=== PATIENT | female | born 1955 | race Caucasian/White ===

== ENCOUNTER 2025-07-01 08:44 | Outpatient (AMB) | payer MEDICARE, MEDICAID, SELFPAY ==
--- NOTE | 2025-07-01 09:20 | MHC.OFFVIS ---
Intake Visit Reasons: 6 month f/u Accompanied by: staff member Allergies No Known Allergies Allergy (Verified 07/01/25 09:23) Medication List - Last Reconciled 07/01/25 by Celia Mcclendon CNP amlodipine 5 mg PO DAILY atorvastatin 40 mg PO QPM ferrous sulfate (FeroSul) 325 mg PO QAM fluticasone propion-salmeterol 115-21 mcg/actuation (Advair HFA) 2 puffs inhalation BID furosemide 20 mg PO QAM ibuprofen 600 mg PO Q8H PRN metformin ER 500 mg PO QAM montelukast 10 mg PO BEDTIME omeprazole 40 mg PO QAM phenobarbital 64.8 mg PO BEDTIME triamcinolone acetonide 1 spray intranasal DAILY HPI Comments Details: 70-year-old woman with cerebral palsy and associated physical disability and aphasia requiring 24/7 care, and seizure disorder. [facility] a detention. She was doing very good. No seizures. Sleep was okay. Mood was okay. [facility] Medical History (Updated 07/01/25 @ 09:24 by Celia Mcclendon CNP) Asthma GERD (gastroesophageal reflux disease) Hyperlipidemia Cerebellar atrophy Gait disorder Seizure disorder Review of Systems Const Denies chills, Denies daytime sleepiness, Denies difficulty sleeping, Denies fatigue, Denies fever(s), Denies frequent falls, Denies headache(s), Denies increased appetite, Denies poor appetite, Denies snoring, Denies weakness, Denies weight gain and Denies weight loss Eyes Denies loss of vision ENT Denies vertigo, Denies dizziness and Denies headache(s) Card Denies chest pain at rest, Denies chest pain with activity, Denies syncope, Denies leg edema and Denies palpitations Resp Denies snoring GI Denies constipation, Denies heartburn, Denies diarrhea and Denies nausea Denies urinary frequency, Denies urinary incontinence and Denies urinary urgency Musc Reports abnormal gait (balance difficulty), Denies numbness and Denies tingling Skin/Breast Denies dry skin and Denies rash Neuro Reports abnormal gait (balance difficulty), Denies vertigo, Denies dizziness, Denies syncope, Denies frequent falls, Denies headache(s), Reports lack of coordination, Denies loss of vision, Reports memory loss, Denies numbness, Denies restless legs, Denies seizure-like activity, Denies tingling, Denies paresthesias, Denies tremor(s) and Denies weakness Psych Denies anxiety, Denies depression, Denies auditory hallucinations, Reports memory loss, Denies visual hallucinations and Denies suicidal ideation Endo Denies fatigue and Denies palpitations Physical Exam Const Other: General Appearance:? normal, in no acute distress. Skin:? no rashes, no significant birthmarks. Heart:? S1, S2 normal, no murmurs. Lungs:? clear anteriorly and posteriorly. Extremities:? no edema. Psych:? alert. Neuro Other: Mental Status:?Alert and awake, mumbles, follows some one step commands. Affect is okay. Cranial Nerves:?Pupils are equal, round and reactive to light. External occular muscles are intact. Visual marino are full. Face is symmetrical. Facial sensations are normal. Tongue is midline. Palate elevates symmetrically. Shoulder shrugging is normal. Hearing to bedside conversation is normal. Sensory Exam:?....? Gait Exam: In wheelchair. Cerebellar Signs:?Could not do. Extrapyramidal System:?No tremor, rigidity with normal facial expressions.? Pronator Drift:?Not present.? Involuntary Movements:?No tremors seen.? Speech:?Normal.? Results Reviewed Results Reviewed: CT brain at [facility] [place] in Jun 2017: L occipital area calcification (?AVM, ?TORCH infection) mod severe focal cerebellar atrophy. Assessment & Plan Assessment & Plan (1) Chronic static encephalopathy: Code(s): G93.49 - Other encephalopathy Category: Medical (2) Seizure disorder: Code(s): G40.909 - Epilepsy, unspecified, not intractable, without status epilepticus Category: Medical Plan: Continue phenobarbital 64.8mg 1 tablet at bedtime. Plan . Coding Level of Care Code Est Pt Level 4 (93777) Diagnoses Chronic static encephalopathy G93.49 Seizure disorder G40.909
== END 2025-07-01 09:29 | disposition home or self-care (01) ==
LOC: HO.HSM 08:45
PROVIDERS: PCP Internal Medicine; Referring Provider Family Medicine; Visit Provider Registered Nurse
DX: G93.49 Other encephalopathy (principal); G40.909 Epilepsy, unspecified, not intractable, without status epilepticus
CPT/HCPCS: 99214

== ENCOUNTER → 2025-07-01 08:44 | Outpatient (BNVA) | payer MEDICARE, MEDICAID, SELFPAY | PROVIDERS: PCP Internal Medicine; Referring Provider Family Medicine; Visit Provider Registered Nurse | DX: G80.9 Cerebral palsy, unspecified (principal); G40.909 Epilepsy, unspecified, not intractable, without status epilepticus; R47.01 Aphasia | CPT/HCPCS: 99212 ==